=== PATIENT | female | born 1945 | race Caucasian/White ===

== ENCOUNTER → 2020-11-08 | Outpatient (CLI) | payer OTHER ==
[2020-11-08 19:30] LABS: BASOPHILS ABSOLUTE AUTO 0.05 K/mm3 (0.00-0.23); BASOPHILS PERCENT AUTO 1 % (0-2); EOSINOPHILS ABSOLUTE AUTO 0.13 K/mm3 (0.00-0.68); EOSINOPHILS PERCENT AUTO 2 % (0-6); Hematocrit 43.5 % (33.0-51.0); Hemoglobin 13.8 g/dL (11.5-16.0); IMMATURE GRAN ABSOLUTE AUTO 0.01 K/mm3 (0.00-0.10); IMMATURE GRAN PERCENT AUTO 0 % (0-1); LYMPHOCYTES ABSOLUTE AUTO 1.65 K/mm3 (0.84-5.20); LYMPHOCYTES PERCENT AUTO 28 % (21-46); MONOCYTES ABSOLUTE AUTO 0.29 K/mm3 (0.16-1.47); MONOCYTES PERCENT AUTO 5 % (4-13); Mean Corpuscular HGB 29.9 pg (26.0-34.0); Mean Corpuscular HGB Conc 31.7 g/dL (31.5-36.5); Mean Corpuscular Volume 94 fL (80-100); NEUTROPHILS ABSOLUTE AUTO 3.77 K/mm3 (1.96-9.15); NEUTROPHILS PERCENT AUTO 64 % (41-73); Platelet Count 247 K/mm3 (150-400); RDW Coefficient Variation 12.1 % (11.7-14.2); RDW Standard Deviation 42.2 fL (35.1-46.3); Red Blood Cell Count 4.61 M/mm3 (3.80-5.20)
[2020-11-08 19:31] LABS: Mean Platelet Volume 13.4 fL (9.1-12.4)
[2020-11-08 19:50] LABS: Alanine Aminotransfer (ALT/SGP 27 U/L (12-78); Albumin, Blood 4.2 g/dL (3.4-5.0); Albumin/Globulin Ratio 1.2 (0.8-1.8); Alk Phos 118 U/L (50-136); Anion Gap 6 mmol/L (6-16); Aspartate Aminotrans (AST/SGOT 21 U/L (12-37); Bilirubin, Total 0.4 mg/dL (0.1-1.0); Blood Urea Nitrogen 16 mg/dL (8-24); Bun/Creatinine Ratio 22.2 (12.0-20.0); CO2, Blood 28 mmol/L (21-32); Calcium, Blood 9.3 mg/dL (8.5-10.1); Chloride, Blood 107 mmol/L (98-108); Creatinine, Blood 0.72 mg/dL (0.40-1.00); Globulin, Blood 3.4 g/dL (2.2-4.0); Glomerular Filtration Rate >60 (60-); Glucose, Blood 82 mg/dL (70-99); Potassium, Blood 4.6 mmol/L (3.5-5.5); Sodium, Blood 141 mmol/L (136-145); Total Protein, Blood 7.6 g/dL (6.4-8.2)
== END | disposition home or self-care (01) ==
LOC: LAB SHORT 12:32 → LAB 12:32
PROVIDERS: Family Medicine
DX: R10.9 Unspecified abdominal pain (principal)
CPT/HCPCS: 80053; 85025

== ENCOUNTER → 2022-07-09 | Outpatient (CLI) | payer OTHER | END | disposition home or self-care (01) | LOC: LAB SHORT 12:15 → LAB 12:15 → PLD 12:15 | DX: L57.0 Actinic keratosis (principal) | CPT/HCPCS: 88305 ==

== ENCOUNTER → 2023-08-02 | Outpatient (CLI) | payer OTHER ==
[2023-08-02 11:32] LABS: Albumin, Blood 3.8 g/dL (3.4-5.0); Albumin/Globulin Ratio 1.1 (0.8-1.8); Bilirubin, Total 0.6 mg/dL (0.1-1.0); Bun/Creatinine Ratio 21.6 (12.0-20.0); Calcium, Blood 9.2 mg/dL (8.5-10.1); Creatinine, Blood 0.88 mg/dL (0.40-1.00); Globulin, Blood 3.6 g/dL (2.2-4.0); Thyroid Stimulating Hormone 0.526 uIU/mL (0.360-4.800); Total Protein, Blood 7.4 g/dL (6.4-8.2)
[2023-08-02 15:36] LABS: Percent Saturation 16.4 % (15.0-50.0)
[2023-08-05 05:23] LABS: VITAMIN D,1,25-DIHYDROXY 31.1 pg/mL (19.9-79.3)
== END ==
LOC: LAB 10:11 → LAB SHORT 10:11
PROVIDERS: Physician Assistant
DX: M81.0 Age-related osteoporosis without current pathological fracture (principal); G25.81 Restless legs syndrome; G62.9 Polyneuropathy, unspecified
CPT/HCPCS: 36415; 80053; 82607; 82652; 82728; 82746; 83036; 83540; 83550; 83970; 84443

== ENCOUNTER 2024-05-20 12:30 | Inpatient (IN) | payer OTHER ==
[~2024-05-20] VITALS: Ht 162.6 cm; Wt 40.5 kg
[2024-05-20] MEDS ORDERED: Albuterol 2.5 MG/3 ML VIAL INH SCH (12:45)
[2024-05-20] MEDS ORDERED: Mag Sulfate 1 GM/D5% 100ML 100 ML IV ONE (12:45)
[2024-05-20] MEDS ORDERED: ATOR20 PO (13:13)
[2024-05-20] MEDS ORDERED: PROAIR RESPICL90 MCG INH (13:13)
[2024-05-20] MEDS ORDERED: MOTION RELIEF25 MG PO (13:14)
[2024-05-20] MEDS ORDERED: IPRAT-ALBUT 0.5-3 ML INH (13:15)
[2024-05-20] MEDS ORDERED: FLUT.05NI (13:15)
[2024-05-20 13:18] LABS: Base Excess Venous 5.3 mmol/L; Bicarbonate Venous 27.5 mmol/L (24.0-30.0); PCO2 Venous 52.1 mmHg (38-42); pH Blood Venous 7.38 (7.34-7.37)
[2024-05-20 13:27] LABS: BASOPHILS ABSOLUTE AUTO 0.03 K/mm3 (0.00-0.23); BASOPHILS PERCENT AUTO 0 % (0-2); EOSINOPHILS PERCENT AUTO 0 % (0-6); Hematocrit 40.2 % (33.0-51.0); Hemoglobin 13.1 g/dL (11.5-16.0); IMMATURE GRAN ABSOLUTE AUTO 0.09 K/mm3 (0.00-0.10); IMMATURE GRAN PERCENT AUTO 1 % (0-1); LYMPHOCYTES ABSOLUTE AUTO 0.61 K/mm3 (0.84-5.20); LYMPHOCYTES PERCENT AUTO 4 % (21-46); MONOCYTES ABSOLUTE AUTO 1.12 K/mm3 (0.16-1.47); MONOCYTES PERCENT AUTO 7 % (4-13); Mean Corpuscular HGB Conc 32.6 g/dL (31.5-36.5); Mean Corpuscular Volume 89 fL (80-100); Mean Platelet Volume 11.5 fL (9.1-12.4); NEUTROPHILS ABSOLUTE AUTO 13.38 K/mm3 (1.96-9.15); NEUTROPHILS PERCENT AUTO 88 % (41-73); Platelet Count 336 K/mm3 (150-400); RDW Coefficient Variation 13.4 % (11.7-14.2); RDW Standard Deviation 43.9 fL (35.1-46.3); Red Blood Cell Count 4.51 M/mm3 (3.80-5.20); White Blood Cell Count 15.23 K/mm3 (4.00-11.30)
[2024-05-20 13:55] LABS: Bun/Creatinine Ratio 29.9 (12.0-20.0); Creatinine, Blood 0.64 mg/dL (0.40-1.00); Potassium, Blood 3.5 mmol/L (3.5-5.5)
[2024-05-20 15:05] LABS: Influenza A, PCR NEGATIVE (NEGATIVE); Influenza B, PCR NEGATIVE (NEGATIVE); Resp Syncytial Virus, PCR NEGATIVE (NEGATIVE); SARS-Cov-2 (COVID-19) PCR, MMC NEGATIVE (NEGATIVE)
[2024-05-20] MEDS ORDERED: Ipratropium/Albuterol SulF 2.5-0.5MG/3 ML Amp INH SCH (15:40)
[2024-05-20] MEDS ORDERED: ALLERCLEAR10 MG PO (15:40)
[2024-05-20] MEDS ORDERED: Lactated Ringer's 1,000 ML IV SCH (15:45)
[2024-05-20] MEDS ORDERED: Magnesium Hydroxide Conc 10 ML UDC PO PRN (15:45)
[2024-05-20] MEDS ORDERED: Bisacodyl 10 MG Supp PR PRN (15:45)
[2024-05-20 18:11] VITALS: BP 157/79
[2024-05-20] MEDS ORDERED: LORA10ER PO (18:20)
--- NOTE | 2024-05-20 18:44 | NUR ---
ADMISSION NOTE PATIENT ADMITTED THIS EVENING, A/OX4, ABLE TO MAKE NEEDS KNOWN. STAND BY ASSIST. PLEASANT AND COOPERATIVE. SKIN INTACT, BLANCHABLE REDNESS TO COCCYX. 2 LPM OXYGEN VIA NASAL CANNULA. SON AT BEDSIDE. TELEMETRY IN PLACE, SINUS TACH. LR RUNNING AT 100ML/HR PER APR. PATIENT STATES SHE LIVES ALONE WITH HER SONS LIVING IN SEPARATE DWELLINGS ON HER PROPERTY. NO OTHER CONCERNS AT THIS TIME. BEDSIDE SHIFT REPORT PROVIDED TO ROTARY PUMP OPERATOR RN.
[2024-05-20 19:35] VITALS: BP 156/72
[2024-05-20] MEDS ORDERED: Acetaminophen 500 MG Tab PO PRN (20:25)
[2024-05-20] MEDS ORDERED: Fluticasone 0.05% Nasal Spray SCH (21:00)
[2024-05-21 00:03] VITALS: BP 151/86
[2024-05-21] MEDS ORDERED: Ipratropium/Albuterol SulF 2.5-0.5MG/3 ML Amp INH SCH (00:50)
--- NOTE | 2024-05-21 04:36 | NUR ---
SHIFT SUMMARY: PT AOX4, CALLS APPROPRIATELY, COOPERATIVE IN CARE. 1PA WITH FWW TO THE BSC. TOLERATING MEDICATIONS WELL AND HAS BEEN SLEEPING PEACEFULLY THROUGH THE NIGHT. PT VERY PLEASANT. NO ACUTE EVENTS OVERNIGHT. DENIES SOB AND CP. NO ACUTE EVENTS OVERNIGHT. PT IN BED SLEEPING, BED IN LOWEST POSITION, CALL LIGHT IN REACH. CONTINUING CARE.
[2024-05-21 04:41] VITALS: BP 142/70
[2024-05-21 05:42] LABS: BASOPHILS ABSOLUTE AUTO 0.01 K/mm3 (0.00-0.23); BASOPHILS PERCENT AUTO 0 % (0-2); EOSINOPHILS PERCENT AUTO 0 % (0-6); Hemoglobin 11.5 g/dL (11.5-16.0); IMMATURE GRAN ABSOLUTE AUTO 0.11 K/mm3 (0.00-0.10); IMMATURE GRAN PERCENT AUTO 1 % (0-1); LYMPHOCYTES PERCENT AUTO 8 % (21-46); MONOCYTES ABSOLUTE AUTO 0.37 K/mm3 (0.16-1.47); MONOCYTES PERCENT AUTO 4 % (4-13); Mean Corpuscular HGB Conc 31.9 g/dL (31.5-36.5); Mean Corpuscular Volume 91 fL (80-100); Mean Platelet Volume 11.4 fL (9.1-12.4); NEUTROPHILS ABSOLUTE AUTO 8.86 K/mm3 (1.96-9.15); NEUTROPHILS PERCENT AUTO 87 % (41-73); Platelet Count 254 K/mm3 (150-400); RDW Coefficient Variation 13.4 % (11.7-14.2); Red Blood Cell Count 3.97 M/mm3 (3.80-5.20); White Blood Cell Count 10.15 K/mm3 (4.00-11.30)
[2024-05-21 06:14] LABS: Bun/Creatinine Ratio 38.5 (12.0-20.0); Calcium, Blood 8.6 mg/dL (8.5-10.1); Creatinine, Blood 0.52 mg/dL (0.40-1.00); Potassium, Blood 3.7 mmol/L (3.5-5.5)
[2024-05-21 07:53] VITALS: BP 134/91
[2024-05-21] MEDS ORDERED: Enoxaparin 30 MG/0.3 ML SYR SC SCH (09:00)
[2024-05-21] MEDS ORDERED: Loratadine 10 MG Tab PO SCH (09:00)
[2024-05-21] MEDS ORDERED: MethylPREDNISolone Sod Succ 125 MG Vial IV SCH (09:00)
[2024-05-21 09:34] VITALS: BP 128/85
--- NOTE | 2024-05-21 09:45 | NUR ---
NOTIFIED BY TELEMETRY THAT THE PT WAS TACHY 120-130, ACCOUNTING SPECIALIST REPORTED PT WAS SOB, PT RETURNED TO BED VITALS TAKEN, EKG DONE, OXYGEN PLACED ON PT, MD NOTIFIED, PT STATES ALREADY "FEELING BETTER" AFTER GETTING INTO BED AND O2 ON, NO NEW ORDERS, WILL CONT TO MONITOR
--- NOTE | 2024-05-21 13:35 | NUR ---
TELE NOTIFIED THIS RN THE PT HAD A RUN OF SVT, PT ASYMPTOMATIC, NOTIFIED, WILL CONT TO MONITOR
[2024-05-21 15:21] VITALS: BP 146/66
--- NOTE | 2024-05-21 18:40 | NUR ---
ASSUMED PT CARE 1330. NO C.O PAIN THIS SHIFT. DID AMBULATE TO BATHROOM WITH 1 SBA. TUSHAR WELL. ON 2L O2. NO SOB WITH AMBULATION ON THIS TRIP NOTED. FAMILY IN TO VISIT TODAY. DID HAVE 1 SEC RUN SVT PER TELE. PT RESTING, EYES CLOSED, DID NOT AWAKEN. PT PLESENTLY SITTING UP EATING DINNER. NO NEW CONCERNS NOTED. BED IN LOW POSITION, CALL LITE IN REACH, CALLS APPROP
[2024-05-21 19:10] VITALS: BP 152/92
[2024-05-22 01:08] VITALS: BP 134/66
[2024-05-22 04:28] VITALS: BP 139/80
[2024-05-22 05:46] LABS: BASOPHILS ABSOLUTE AUTO 0.01 K/mm3 (0.00-0.23); BASOPHILS PERCENT AUTO 0 % (0-2); EOSINOPHILS PERCENT AUTO 0 % (0-6); Hematocrit 35.1 % (33.0-51.0); Hemoglobin 11.3 g/dL (11.5-16.0); IMMATURE GRAN ABSOLUTE AUTO 0.17 K/mm3 (0.00-0.10); IMMATURE GRAN PERCENT AUTO 1 % (0-1); LYMPHOCYTES ABSOLUTE AUTO 0.79 K/mm3 (0.84-5.20); LYMPHOCYTES PERCENT AUTO 5 % (21-46); MONOCYTES ABSOLUTE AUTO 0.57 K/mm3 (0.16-1.47); MONOCYTES PERCENT AUTO 4 % (4-13); Mean Corpuscular HGB 28.9 pg (26.0-34.0); Mean Corpuscular HGB Conc 32.2 g/dL (31.5-36.5); Mean Corpuscular Volume 90 fL (80-100); Mean Platelet Volume 11.2 fL (9.1-12.4); NEUTROPHILS ABSOLUTE AUTO 13.59 K/mm3 (1.96-9.15); NEUTROPHILS PERCENT AUTO 90 % (41-73); Platelet Count 295 K/mm3 (150-400); RDW Coefficient Variation 13.5 % (11.7-14.2); RDW Standard Deviation 44.4 fL (35.1-46.3); Red Blood Cell Count 3.91 M/mm3 (3.80-5.20); White Blood Cell Count 15.13 K/mm3 (4.00-11.30)
[2024-05-22 06:12] LABS: Bun/Creatinine Ratio 36.1 (12.0-20.0); Calcium, Blood 8.1 mg/dL (8.5-10.1); Creatinine, Blood 0.58 mg/dL (0.40-1.00); Magnesium, Blood 2.5 mg/dL (1.6-2.4); Potassium, Blood 3.7 mmol/L (3.5-5.5)
--- NOTE | 2024-05-22 06:34 | NUR ---
SHIFT SUMMARY: Pt is admitted for COPD exasperation and is a DNR. is alert and able to make needs known. ADLs have been SBA. pain was managed with PRN APAP that was effective. Joe reports sinus in the 90s with no events. Wore 2lpm via NC PRN mainly with exertion for shortness of breath.
[2024-05-22 07:07] VITALS: BP 138/86
[2024-05-22] MEDS ORDERED: Folic Acid 1 MG TAB PO SCH (09:00)
[2024-05-22] MEDS ORDERED: Multivitamins 1 Tab PO SCH (09:00)
[2024-05-22] MEDS ORDERED: Thiamine HCl 100 MG Tab PO SCH (09:00)
--- NOTE | 2024-05-22 11:13 | NUR ---
0900 SPOKE TO TELE. RE SVT RUNS. GENERALLY ONLY 1-3 SECONDS. ONLY ONE THIS AM ALSO, PT IA INTERVAL 0.08, SHORT. SPOKE TO DR MERINO. HE REQUEST NOT NOTIFY HIM IF <5 SECONDS. NO OTHER ORDERS.
[2024-05-22] MEDS ORDERED: GuaiFENesin 600 MG TabCR PO SCH (11:55)
--- NOTE | 2024-05-22 13:46 | NUR ---
1300. CONTACTED DR MERINO RE SUSTAIINED H/R HANGING IN LOW 120'S SINCE WALKNG THIS AM. NO ORDERS AT THIS TIME.
--- NOTE | 2024-05-22 15:22 | NUR ---
called dr booth. advised pt h/r hanging 115-120 with a run of 5 sec svt per tele. asked for orders.
[2024-05-22 16:47] VITALS: BP 164/92
--- NOTE | 2024-05-22 17:53 | NUR ---
PT PLEASANT TODAY. NO C/O PAIN. DID HAVE RUN SVT TODAY OF 5 SEC. NOTIFIED. DID HAVE ELEVATED H/R TODAY. 120'S. THEN DOWN TO 115-120 THIS AFT. NOTIFIED. NO NEW ORDERS AT THIS TIME. PT STATES FEELS SOME BETTER THIS AFTERNOON. FAMILY IN TO VISIT TODAY. NO OTHER CONCERNS NOTED. BED IN LOW POSITION, CALL LITE REACH, CALLS APPROP
[2024-05-22 19:53] VITALS: BP 170/81
[2024-05-22 23:43] VITALS: BP 160/82
[2024-05-23] VITALS (10 sets, daily range): BP systolic 142–199; BP diastolic 74–139
--- NOTE | 2024-05-23 05:38 | NUR ---
SHIFT SUMMARY PT ALERT AND ORIENTED TIMES 4. PT IS ADMITTED FOR COPD AND SOB. PT IS NOT ON OXYGEN. PT IS STAND BY ASSIST TO TOILET. PT HAS HX OF EMPHAZEMA AND TAKES MEDICATION WITH APPLESAUCE. PT HAD 10 BEATS SVT. RATE THEN WENT BACK TO SINUS RHYTHM. 86. CALL LIGHT WITHIN REACH, RAILS TIMES 2, BED IN LOW POSITION.
[2024-05-23 07:12] LABS: Magnesium, Blood 2.3 mg/dL (1.6-2.4); Phosphorus, Blood 2.5 mg/dL (2.5-4.9)
--- NOTE | 2024-05-23 07:25 | NUR ---
NOTE: THIS NURSE ATTEMPTED TO CALL DR. MERINO ABOUT PT'S BLOOD PRESSURE THIS AM. CALLED TWICE AND THE PHONE WENT STRAIGHT TO VOICEMAIL BOTH TIMES.
--- NOTE | 2024-05-23 07:31 | NUR ---
NOTE: THIS NURSE WAS ABLE TO CONTACT DR. MERINO AND AN ORDER WAS PLACED. SEE EMAR.
--- NOTE | 2024-05-23 08:09 | NUR ---
NOTE: NOTIFIED BY TELE THE PT'S HR IS SUSTAINING 120, AT TIMES GETTING TO 130. DR. MERINO NOTIFIED AND NEW ORDERS OBTAINED. SEE EMAR.
[2024-05-23] MEDS ORDERED: Metoprolol Succinate 25 MG TABCR PO SCH (09:00)
[2024-05-23] MEDS ORDERED: Losartan Potassium 50 MG Tab PO SCH (09:00)
--- NOTE | 2024-05-23 09:12 | NUR ---
NOTE: NOTIFIED BY TELE OF PT'S HR 130. METOPROLOL GIVEN THIS AM AND DR. MERINO SAID TO MONITOR AT THIS TIME. NO NEW ORDERS.
[2024-05-23] MEDS ORDERED: Losartan Potassium 50 MG Tab PO ONE (09:15)
[2024-05-23 11:13] LABS: BASOPHILS ABSOLUTE AUTO 0.05 K/mm3 (0.00-0.23); BASOPHILS PERCENT AUTO 0 % (0-2); EOSINOPHILS PERCENT AUTO 0 % (0-6); Hematocrit 38.1 % (33.0-51.0); Hemoglobin 12.3 g/dL (11.5-16.0); IMMATURE GRAN ABSOLUTE AUTO 0.26 K/mm3 (0.00-0.10); IMMATURE GRAN PERCENT AUTO 1 % (0-1); LYMPHOCYTES ABSOLUTE AUTO 1.34 K/mm3 (0.84-5.20); LYMPHOCYTES PERCENT AUTO 7 % (21-46); MONOCYTES ABSOLUTE AUTO 1.37 K/mm3 (0.16-1.47); MONOCYTES PERCENT AUTO 7 % (4-13); Mean Corpuscular HGB 29.1 pg (26.0-34.0); Mean Corpuscular HGB Conc 32.3 g/dL (31.5-36.5); Mean Corpuscular Volume 90 fL (80-100); Mean Platelet Volume 12.1 fL (9.1-12.4); NEUTROPHILS ABSOLUTE AUTO 15.74 K/mm3 (1.96-9.15); NEUTROPHILS PERCENT AUTO 84 % (41-73); Platelet Count 350 K/mm3 (150-400); RDW Coefficient Variation 13.6 % (11.7-14.2); Red Blood Cell Count 4.23 M/mm3 (3.80-5.20); White Blood Cell Count 18.76 K/mm3 (4.00-11.30)
[2024-05-23 11:23] LABS: Albumin, Blood 2.7 g/dL (3.4-5.0); Albumin/Globulin Ratio 0.8 (0.8-1.8); Bilirubin, Total 0.5 mg/dL (0.1-1.0); Calcium, Blood 8.5 mg/dL (8.5-10.1); Creatinine, Blood 0.57 mg/dL (0.40-1.00); Globulin, Blood 3.6 g/dL (2.2-4.0); Potassium, Blood 3.7 mmol/L (3.5-5.5); Total Protein, Blood 6.3 g/dL (6.4-8.2)
--- NOTE | 2024-05-23 11:24 | NUR ---
NOTE: NOTIFIED PROVIDER OF PT'S BLOOD PRESSURE RECHECK OF 175 SYSTOLIC, NEW ORDER OBTAINED. SEE EMAR.
[2024-05-23] MEDS ORDERED: NIFEdipine 60 MG TabCR PO SCH (11:25)
--- NOTE | 2024-05-23 13:03 | NUR ---
NOTE: NOTIFIED PROVIDER, DR. MERINO OF PT'S BLOOD PRESSURE RECHECK OF 169 SYSTOLIC. THIS IS ONE HOUR AFTER PROCARDIA XR ADMINISTRATION. ALSO NOTIFIED PROVIDER OF PT'S REQUEST FOR MELATONIN TO SLEEP TONIGHT. NO NEW ORDERS FOR THE BLOOD PRESSURE, MELATONIN PER THE EMAR.
--- NOTE | 2024-05-23 14:38 | NUR ---
NOTE: NOTIFIED BY TELE THE PT HAD A 5 BEAT RUN OF VTA, DR. MERINO NOTIFIED. NO NEW ORDERS AT THIS TIME.
[2024-05-23] MEDS ORDERED: Mometasone/Formoterol MDI 100/5 mcg 13 GM INH SCH (15:25)
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
--- NOTE | 2024-05-23 17:29 | NUR ---
NOTE: NOTIFIED BY TELE OF PT HAVING BIGEMINY, INCREASED PVC'S. DR. MERINO NOTIFIED AND NO NEW ORDERS AT THIS TIME.
--- NOTE | 2024-05-23 17:46 | NUR ---
SHIFT SUMMARY PT AOX4, SBA TO THE BR. SEE OTHER NOTES ABOUT TELE EVENTS. PT HAS HAD NO C/O CP OR PRESSURE. MULTIPLE FAMILY MEMBERS AT THE BS THIS SHIFT. PT MEDICATED FOR PAIN PER THE EMAR, ALSO BOWEL CARE ADMINISTERED FOR NO BM IN 2 DAYS. PT IS CURRENTLY ON 2L AFTER C/O SOB EARLIER IN THE SHIFT. PT REPOSITIONS SELF IN BED. CALL LIGHT WITHIN REACH, BED LOCKED AND IN THE LOWEST POSITION. WILL REPORT TO ONCOMING NURSE.
[2024-05-23] MEDS ORDERED: Melatonin 5 MG Tablet PO SCH (21:00)
[2024-05-24 03:16] VITALS: BP 110/68
[2024-05-24 05:31] LABS: BASOPHILS ABSOLUTE AUTO 0.04 K/mm3 (0.00-0.23); BASOPHILS PERCENT AUTO 0 % (0-2); EOSINOPHILS PERCENT AUTO 0 % (0-6); Hematocrit 38.4 % (33.0-51.0); Hemoglobin 12.3 g/dL (11.5-16.0); IMMATURE GRAN ABSOLUTE AUTO 0.25 K/mm3 (0.00-0.10); IMMATURE GRAN PERCENT AUTO 1 % (0-1); LYMPHOCYTES ABSOLUTE AUTO 1.26 K/mm3 (0.84-5.20); LYMPHOCYTES PERCENT AUTO 7 % (21-46); MONOCYTES ABSOLUTE AUTO 0.98 K/mm3 (0.16-1.47); MONOCYTES PERCENT AUTO 5 % (4-13); Mean Corpuscular HGB 28.3 pg (26.0-34.0); Mean Corpuscular Volume 89 fL (80-100); Mean Platelet Volume 10.8 fL (9.1-12.4); NEUTROPHILS ABSOLUTE AUTO 16.75 K/mm3 (1.96-9.15); NEUTROPHILS PERCENT AUTO 87 % (41-73); Platelet Count 319 K/mm3 (150-400); RDW Coefficient Variation 13.3 % (11.7-14.2); RDW Standard Deviation 43.7 fL (35.1-46.3); Red Blood Cell Count 4.34 M/mm3 (3.80-5.20); White Blood Cell Count 19.28 K/mm3 (4.00-11.30)
--- NOTE | 2024-05-24 05:39 | NUR ---
SHIFT SUMMARY PT ALERT AND ORIENTED TIMES 4. PT IS ADMITTED FOR COPD AND SOB. PT IS ON 2L OXYGEN. PT IS STAND BY ASSIST TO TOILET. PT HAS HX OF EMPHAZEMA AND TAKES MEDICATION WITH APPLESAUCE. PT IS RECEPTIVE TO CARE, PT HAD NEW IV PLACED IN RIGHT FOREARM. CREW LEADER CALLED AT 0458, PT HAD 10 BEAT RUN OF SVT. CHECKED ON PT, WHO APPEARED TO BE SLEEPING. PT WOKE UP, STATED SHE WAS HAVING A DREAM AND WAS A BIT STRESSED. PT DENIED CHEST PAIN, NOT DIAPHORETIC. PT ASKED TO BE READJUSTED AND ASKED FOR LIGHT TO BE TURNED OFF. CALL LIGHT WITHIN REACH, RAILS TIMES 2, BED IN LOW POSITION.
[2024-05-24 05:59] LABS: Albumin, Blood 2.5 g/dL (3.4-5.0); Albumin/Globulin Ratio 0.7 (0.8-1.8); Bilirubin, Total 0.5 mg/dL (0.1-1.0); Bun/Creatinine Ratio 42.4 (12.0-20.0); Calcium, Blood 8.5 mg/dL (8.5-10.1); Creatinine, Blood 0.47 mg/dL (0.40-1.00); Globulin, Blood 3.7 g/dL (2.2-4.0); Magnesium, Blood 2.6 mg/dL (1.6-2.4); Phosphorus, Blood 2.9 mg/dL (2.5-4.9); Potassium, Blood 3.5 mmol/L (3.5-5.5); Total Protein, Blood 6.2 g/dL (6.4-8.2)
[2024-05-24 08:12] VITALS: BP 155/77
[2024-05-24] MEDS ORDERED: PredniSONE 20 MG Tab PO SCH (09:00)
[2024-05-24] MEDS ORDERED: GUAI600T33 PO (12:27)
[2024-05-24 12:28] VITALS: BP 107/64
[2024-05-24] MEDS ORDERED: LOSA50 PO (12:28)
[2024-05-24] MEDS ORDERED: MELATONIN5 M1 PO (12:28)
[2024-05-24] MEDS ORDERED: METO25ER PO (12:28)
[2024-05-24] MEDS ORDERED: DULERA 100 MCG-13 GM INH (12:30)
[2024-05-24] MEDS ORDERED: DAILY-VITE1 EAC1 PO (12:31)
[2024-05-24] MEDS ORDERED: DELTASONE20 MG PO (12:32)
[2024-05-24] MEDS ORDERED: NIFE60ER PO (12:32)
[2024-05-24] MEDS ORDERED: B-1100 M1 PO (12:33)
[2024-05-24 16:11] VITALS: BP 127/68
--- NOTE | 2024-05-24 17:59 | NUR ---
DISCHARGE NOTE PT DISCHARGED TO HOME, PICKED UP BY HER SONS. PORTABLE OXYGEN PROVIDED PRIOR TO DISCHARGE. IV REMOVED. TELE RETURNED. DISCHARGE INFORMATION AND EDUCATION PROVIDED. MEDICATIONS FAXED TO THE PHARMACY OF HER CHOICE.
== END 2024-05-24 18:02 | disposition home or self-care (01) | DRG 189 ==
LOC: ER 12:30 → MEDS 12:31 → ER 17:30 → MEDS 18:01
PROVIDERS: Emergency Medicine; Internal Medicine; ADMIT Student in an Organized Health Care Education/Training Program
DX: J96.21 Acute and chronic respiratory failure with hypoxia (principal); J44.1 Chronic obstructive pulmonary disease with (acute) exacerbation; R65.10 Systemic inflammatory response syndrome (SIRS) of non-infectious origin without acute organ dysfunction; R64 Cachexia; Z68.1 Body mass index [BMI] 19.9 or less, adult; E46 Unspecified protein-calorie malnutrition; I47.10 Supraventricular tachycardia, unspecified; J96.22 Acute and chronic respiratory failure with hypercapnia; Z66 Do not resuscitate; M81.0 Age-related osteoporosis without current pathological fracture; D72.823 Leukemoid reaction; E78.5 Hyperlipidemia, unspecified; J30.9 Allergic rhinitis, unspecified; Z60.2 Problems related to living alone; Z87.891 Personal history of nicotine dependence; Z90.710 Acquired absence of both cervix and uterus; Z79.899 Other long term (current) drug therapy; Z79.51 Long term (current) use of inhaled steroids
CPT/HCPCS: 0241U; 36415; 71045; 71260; 80048; 80053; 82803; 83735; 83880; 84100; 84484; 85025; 85379; 92526; 92610; 93005; 93010; 94640; 94644; 94664; 94760; 94761; 94762; 96361; 96365-59; 96366-59; 96372; 96375; 99285-25; A9270; G0378; J1650; J2919; J3475; J7120; J7512; Q9967